=== PATIENT | female | born 1975 | race Caucasian/White ===

== ENCOUNTER 2022-01-31 15:51 | Outpatient (CLI) | payer OTHER, SELFPAY ==
[2022-01-31 16:31] LABS: Basophils Absolute Auto 0.04 K/mm3 (0.00-0.10); Basophils Percent Auto 0.5 % (0.0-1.0); Eosinophils Absolute Auto 0.07 K/mm3 (0.02-0.50); Eosinophils Percent Auto 0.8 % (1.0-6.0); Hematocrit 43.7 % (35.0-49.0); Immature Granulocyte Absolute 0.04 K/mm3 (0.00-0.00); Immature Granulocyte Percent A 0.5 % (0.0-0.0); Lymphocytes Absolute Auto 1.98 K/mm3 (1.10-4.50); Lymphocytes Percent Auto 22.4 % (18.0-42.0); Mean Corpuscular HGB Conc 34.3 g/dL (32.0-36.0); Mean Corpuscular Hemoglobin 33.6 pg (27.0-31.0); Mean Corpuscular Volume 97.8 fL (78.0-102.0); Mean Platelet Volume 10.5 fl (9.2-11.8); Monocytes Percent Auto 6.8 % (2.0-11.0); Neutrophils Absolute Auto 6.1 K/mm3 (1.7-7.2); Platelet Count Result 311 K/mm3 (150-420); Red Blood Count 4.47 M/mm3 (4.20-5.40); Red Cell Distribution Width 12.9 % (11.6-14.4); White Blood Count 8.8 K/mm3 (4.8-10.8)
[2022-01-31 17:13] LABS: Alanine Aminotransferase 28 U/L (14-59); Alkaline Phosphatase 86 U/L (46-116); Anion Gap 7 mmol/L (8-16); Aspartate Amino Transferase 19 U/L (15-37); Bilirubin,Total 0.3 mg/dL (0.00-1.00); Blood Urea Nitrogen 13 mg/dL (7-18); Calcium 9.1 mg/dL (8.5-10.1); Carbon Dioxide 28 mmol/L (21-32); Chloride 103 mmol/L (98-108); Estimated Glomerular Filt Rate > 60; Glucose 101 mg/dL (70-99); Magnesium 1.7 mg/dL (1.8-2.4); Osmolality Calculated 286 mOsm/kg (285-295); Potassium 4.3 mmol/L (3.5-5.1); Sodium 138 mmol/L (136-145); Thyroid Stimulating Hormone 2.16 uIU/mL (0.36-3.74)
== END 2022-01-31 15:52 | disposition home or self-care (01) ==
LOC: CHSLAB 15:54
PROVIDERS: PCP Family Medicine; Visit Provider Family Medicine
DX: R42 Dizziness and giddiness (principal)
CPT/HCPCS: 36415; 80053; 83735; 84443; 85025

== ENCOUNTER 2022-02-16 09:45 | Outpatient (CLI) | payer OTHER, SELFPAY ==
--- NOTE | ~2022-02-16 | US_ITS ---
EXAMINATION: US carotid duplex BI DATE: 02/16/2022 10:07 INDICATION: Dizziness and giddiness TECHNIQUE: Grayscale, color Doppler, and pulsed Doppler images of the cervical carotid arteries were obtained. The degree of vessel stenosis is placed in one of the following categories: normal, <50%, 5 0-69%, >=70% but less than near-occlusion, near-occlusion, or total occlusion. Note that percent sten osis relative to normal distal artery lumen diameter is indirectly measured from velocity measurement s as described by Mark, et al. Radiology 2003; 229:340-346. COMPARISON: None. FINDINGS: RIGHT: The right common carotid artery (CCA) peak systolic velocity (PSV) is 80 cm/s. The right internal car otid artery (ICA) PSV is 102 cm/s. The right ICA end-diastolic velocity (EDV) is 41 cm/s. The right I CA/CCA PSV ratio is 1.3. Grayscale and color Doppler images yield an estimate of <50% diameter reduct ion from plaque in the ICA. The external carotid artery (ECA) PSV is 56 cm/s. There is antegrade flow in the right vertebral artery. LEFT: The left CCA PSV is 96 cm/s. The left ICA PSV is 66 cm/s. The left ICA EDV is 33 cm/s. The left ICA/C CA PSV ratio is 0.7. Grayscale and color Doppler images yield an estimate of <50% diameter reduction from plaque in the ICA. The ECA PSV is 58 cm/s. There is antegrade flow in the left vertebral artery. IMPRESSION: 1. <50% stenosis in the right internal carotid artery. 2. <50% stenosis in the left internal carotid artery. Reviewed, dictated and finalized at location A.
== END 2022-02-16 09:46 | disposition home or self-care (01) ==
LOC: CHSIMG 09:47
PROVIDERS: PCP Family Medicine; Visit Provider Family Medicine
DX: R42 Dizziness and giddiness (principal)
CPT/HCPCS: 93880

== ENCOUNTER 2022-02-17 14:33 | Outpatient (CLI) | payer OTHER, SELFPAY ==
[2022-02-17 15:16] LABS: Magnesium 1.6 mg/dL (1.8-2.4)
[2022-02-17 17:15] LABS: Anion Gap 12 mmol/L (8-16); Blood Urea Nitrogen 10 mg/dL (7-18); Calcium 9.7 mg/dL (8.5-10.1); Carbon Dioxide 26 mmol/L (21-32); Chloride 105 mmol/L (98-108); Estimated Glomerular Filt Rate > 60; Glucose 93 mg/dL (70-99); Osmolality Calculated 295 mOsm/kg (285-295); Sodium 143 mmol/L (136-145)
== END 2022-02-17 14:34 | disposition home or self-care (01) ==
LOC: CHSLAB 14:35
PROVIDERS: PCP Family Medicine; Visit Provider Family Medicine
DX: E83.42 Hypomagnesemia (principal)
CPT/HCPCS: 36415; 80048; 83735

== ENCOUNTER 2023-05-11 16:05 | Outpatient (CLI) | payer OTHER, SELFPAY ==
--- NOTE | ~2023-05-11 | XR_ITS ---
EXAM: XR shoulder RT min 2V DATE: 05/11/2023 16:45 HISTORY: pain in rt shoulder, radiculopathy cervical region/NO TRAUMA . COMPARISON: None available. FINDINGS: Normal mineralization. No fracture or dislocation. No lytic or blastic lesion. Mild degene rative change at the AC joint. No erosion or periosteal change. Soft tissues within normal limits. IMPRESSION: Mild AC joint osteoarthritis. Reviewed, dictated and finalized at location K. 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
--- NOTE | ~2023-05-11 | XR_ITS ---
EXAMINATION:XR cervical spine 4-5V DATE: 05/11/2023 16:44 INDICATION: Neck pain TECHNIQUE: AP, lateral, lateral swimmers and odontoid views of the cervical spine are provided. COMPARISON: None FINDINGS: There is straightening of the cervical spine which can be positional or due to muscular spa sm. Alignment is normal. The odontoid process is intact. No fracture is identified. There is mild los s of intervertebral disc space height at C6-7. Prevertebral soft tissues are normal. IMPRESSION: 1. Mild cervical spondylosis without acute findings. Reviewed, dictated and finalized at location B. 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
[2023-05-11 16:29] LABS: Basophils Absolute Auto 0.09 K/mm3 (0.00-0.10); Basophils Percent Auto 0.8 % (0.0-1.0); Eosinophils Absolute Auto 0.17 K/mm3 (0.02-0.50); Eosinophils Percent Auto 1.5 % (1.0-6.0); Hematocrit 47.1 % (35.0-49.0); Hemoglobin 15.4 g/dL (12.0-15.0); Immature Granulocyte Absolute 0.06 K/mm3 (0.00-0.00); Immature Granulocyte Percent A 0.5 % (0.0-0.0); Lymphocytes Absolute Auto 2.04 K/mm3 (1.10-4.50); Lymphocytes Percent Auto 17.9 % (18.0-42.0); Mean Corpuscular HGB Conc 32.7 g/dL (32.0-36.0); Mean Corpuscular Hemoglobin 32.8 pg (27.0-31.0); Mean Corpuscular Volume 100.2 fL (78.0-102.0); Mean Platelet Volume 10.6 fl (9.2-11.8); Monocytes Absolute Auto 0.65 K/mm3 (0.10-0.90); Monocytes Percent Auto 5.7 % (2.0-11.0); Neutrophils Absolute Auto 8.4 K/mm3 (1.7-7.2); Neutrophils Percent Auto 73.6 % (50.0-70.0); Platelet Count Result 306 K/mm3 (150-420); Red Cell Distribution Width 13.1 % (11.6-14.4); White Blood Count 11.4 K/mm3 (4.8-10.8)
[2023-05-11 16:57] LABS: Alanine Aminotransferase 34 U/L (14-59); Alkaline Phosphatase 70 U/L (46-116); Anion Gap 7 mmol/L (8-16); Aspartate Amino Transferase 24 U/L (15-37); Bilirubin,Total 0.4 mg/dL (0.00-1.00); Blood Urea Nitrogen 14 mg/dL (7-18); Calcium 9.6 mg/dL (8.5-10.1); Carbon Dioxide 31 mmol/L (21-32); Chloride 101 mmol/L (98-108); Estimated Glomerular Filt Rate > 60; Glucose 98 mg/dL (70-99); Magnesium 1.5 mg/dL (1.8-2.4); Osmolality Calculated 288 mOsm/kg (285-295); Potassium 4.7 mmol/L (3.5-5.1); Sodium 139 mmol/L (136-145); Total Protein 7.7 g/dL (6.4-8.2)
== END 2023-05-11 16:06 | disposition home or self-care (01) ==
LOC: CHSLAB 16:07
PROVIDERS: PCP Family Medicine; Visit Provider Family Medicine
DX: R53.83 Other fatigue (principal); E83.42 Hypomagnesemia; M25.511 Pain in right shoulder; M54.12 Radiculopathy, cervical region; M19.011 Primary osteoarthritis, right shoulder
CPT/HCPCS: 36415; 72050; 73030; 80053; 83735; 84443; 85025

== ENCOUNTER 2023-06-18 05:46 | Emergency (ER) | payer OTHER, SELFPAY ==
--- NOTE | ~2023-06-18 | XR_ITS ---
EXAMINATION: [id number] INDICATION: Left chest wall pain TECHNIQUE: A frontal view of the chest and 3 views of the left ribs were obtained. COMPARISON: 11/02/2018 FINDINGS: The lungs are free of acute opacities. No pleural effusion or pneumothorax. The cardiomedia stinal silhouette is normal. No displaced rib fracture is identified. IMPRESSION: 1. No acute cardiopulmonary abnormality or evidence of displaced rib fracture. Reviewed, dictated and finalized at location F. OR PRODUCTION SUPERVISOR
[2023-06-18 05:46] VITALS: BP 116/88; PULSE 75; RESP 18; TEMP 36.2; O2SAT 98
--- NOTE | 2023-06-18 05:58 | ED.CHESTPAIN ---
HPI - Chest Pain General Chief Complaint: Unspecified Stated Complaint: abdominal pain Time Seen by Provider: 06/18/23 05:58 Source: patient Mode of arrival: ambulatory Limitations: no limitations History of Present Illness HPI narrative: 48-year-old female, smoker with a history of psoriasis presents to the ER with -- left lower chest wall pain which is made worse by deep breathing. Patient had a couple of alcoholic beverages. While she was getting ready to sleep she noted the left lower chest wall pain. No nausea/ vomiting. No shortness of breath. no sweating. MD complaint: chest pain Onset (ago): minute(s) ( Started 1 hour ago) Timing of current episode: episodic Prior episodes: No Onset: during exertion Pain location: left chest Pain radiation: none Severity: severe Quality: aching Relieving factors: nothing Exacerbating factors: inspiration Related Data Home Medications Medication Instructions Recorded Confirmed risankizumab-rzaa 150 mg/mL 150 mg subcut [id number] 06/18/23 06/18/23 subcutaneous pen injector (Skyrizi) Allergies Allergy/AdvReac Type Severity Reaction Status Date / Time steroids AdvReac Intermediate Other Uncoded 06/18/23 05:54 Review of Systems Review of Systems: All systems reviewed & are unremarkable except as noted in HPI and below Constitutional: Constitutional: Reports as per HPI and Reports no additional constitutional complaints Eyes: Eyes: Reports as per HPI and Reports no additional eye complaints ENT: Reports system reviewed and no additional complaints, except as documented and Reports as per HPI Cardiovascular: Cardiovascular: Reports as per HPI and Reports no additional cardiovascular complaints Respiratory: Respiratory: Reports as per HPI and Reports no additional respiratory complaints Comments: Left lower chest wall pain. Gastrointestinal: Gastrointestinal: Reports as per HPI and Reports no additional gastrointestinal complaints Genitourinary: Genitourinary: Reports no additional female genitourinary complaints and Reports as per HPI Musculoskeletal: Musculoskeletal: Reports no additional musculoskeletal complaints and Reports as per HPI Comments: Left chest wall pain Integumentary/Breasts: Skin/Breast: Reports system reviewed and no additional complaints, except as docu and Reports as per HPI Neurologic: Reports system reviewed and no additional complaints, except as documented and Reports as per HPI Psychiatric: Psychiatric: Reports no additional psychiatric complaints and Reports as per HPI Endocrine: Endocrine: Reports no additional endocrine complaints and Reports as per HPI Hematologic/Lymphatic: Hematologic/Lymphatic: Reports no additional hematologic/lymphatic complaints and Reports as per HPI Allergic/Immunologic: Allergic/Immunologic: Reports no additional allergic/immunologic complaints and Reports as per HPI [facility] Past Medical History Medical History (Updated 06/18/23 @ 06:39 by Yousif Harp MD) Psoriasis Social History Social History (Updated 06/18/23 @ 06:10 by Yousif Harp MD) Social History: smoker Smoking packs per day: 0.5 Smoking cigarettes per day: 10.0 Exam Const: General: ill appearing HENMT: Head: normal to inspection Ears: external ears normal Face/Nose/Sinus: Normal external nose present Face and sinus: normal facial exam Mouth: Yes Normal oral and palatal mucosa present Throat: posterior oropharynx normal Eyes: Conjunctivae: conjunctivae normal Pupils: Equal, round and reactive pupils present EOM: EOMs intact bilaterally Direct Ophthalmoscopy: no photophobia Neck: Neck: normal visual inspection, no lymphadenopathy and no meningeal signs Chest: Chest palpation & inspection: normal inspection of the chest Other: chest wall tenderness in the left lower chest wall in the inframammary region Resp: Effort & Inspection: normal respiratory effort Auscultation: diminished l
--- NOTE | 2023-06-18 06:02 | ECG_ITS ---
Measurements Intervals [place] Rate: 73 P: 65 IN: 142 QRS: 52 QRSD: 97 T: 75 QT: 398 QTc: 439 Interpretive Statements SINUS RHYTHM NO PREVIOUS ECG AVAILABLE FOR COMPARISON Electronically Signed On 06-18-2023 11:31:52 SHOT FIREMAN by Dannie Dumont M.D.
[2023-06-18] MEDS: KETOROLAC 30 MG/ML VIAL (*BKC) IM (06:15)
--- NOTE | 2023-06-18 06:36 | PC.NURSE ---
Pt refuses all blood work. ERP aware.
== END 2023-06-18 06:45 | disposition home or self-care (01) ==
PROVIDERS: Emergency Provider Internal Medicine Critical Care Medicine; PCP Family Medicine
DX: R07.89 Other chest pain (principal); F17.210 Nicotine dependence, cigarettes, uncomplicated
CPT/HCPCS: 71101; 93005; 96372; 99284; J1885

== ENCOUNTER 2024-04-08 11:36 | Outpatient (CLI) | payer OTHER, SELFPAY ==
--- NOTE | ~2024-04-08 | XR_ITS ---
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 RESULT: Lines, tubes, and devices: None. Lungs and pleura: Clear. Cardiomediastinal silhouette: Stable. Other: No acute osseous or upper abdominal finding. IMPRESSION: No acute cardiopulmonary process. Reviewed, dictated and finalized at location K. CUTTING MACHINE OPERATOR
== END 2024-04-08 11:37 | disposition home or self-care (01) ==
LOC: CHSIMG 11:37
PROVIDERS: PCP Family Medicine; Visit Provider Family Medicine
DX: J20.9 Acute bronchitis, unspecified (principal)
CPT/HCPCS: 71046

== ENCOUNTER 2025-02-27 14:49 | Outpatient (CLI) | payer OTHER, SELFPAY ==
--- NOTE | ~2025-02-27 | XR_ITS ---
EXAMINATION: XR chest 2V, 02/27/2025 14:55 CDT HISTORY: ACUTE BRONCHITIS, UNSPECIFIED COMPARISON: No comparisons available. Technique: 2 views obtained. Findings: The lungs are clear, no effusion. No pneumothorax. Heart is normal size. Mediastinal and hilar contours are within normal limits. Bony thorax no acute abnormality. Impression: No acute cardiopulmonary abnormality. Reviewed, dictated and finalized at location P. Impression: No acute cardiopulmonary abnormality.
== END 2025-02-27 14:50 | disposition home or self-care (01) ==
LOC: CHSIMG 14:52
PROVIDERS: PCP Family Medicine; Visit Provider Family Medicine
DX: J20.9 Acute bronchitis, unspecified (principal)
CPT/HCPCS: 71046